=== PATIENT | female | born 1960 | race Caucasian/White ===

== ENCOUNTER 2019-02-26 16:04 | Emergency (ER) | payer MEDICAID ==
[~2019-02-26] VITALS: Ht 170.2 cm; Wt 70.3 kg
[2019-02-26 16:10] VITALS: BP_SYST 159
[2019-02-26] MEDS ORDERED: KETOROLAC TROMETHAMINE 60 MG/2 ML VIAL IM ONE (17:30)
[2019-02-26 17:50] VITALS: BP_SYST 158
== END 2019-02-26 17:50 | disposition home or self-care (01) ==
LOC: SED 16:04
DX: S90.32XA Contusion of left foot, initial encounter (principal); F17.210 Nicotine dependence, cigarettes, uncomplicated; R03.0 Elevated blood-pressure reading, without diagnosis of hypertension; W20.8XXA Other cause of strike by thrown, projected or falling object, initial encounter; Y93.89 Activity, other specified; Y92.89 Other specified places as the place of occurrence of the external cause; Y99.8 Other external cause status
CPT/HCPCS: 73630; 96372; 99283; J1885

== ENCOUNTER 2019-10-07 11:14 | Emergency (ER) | payer MEDICAID ==
[~2019-10-07] VITALS: Ht 170.2 cm; Wt 72.6 kg
[2019-10-07 11:14] VITALS: BP_SYST 157
[2019-10-07] MEDS ORDERED: KETOROLAC TROMETHAMINE 60 MG/2 ML VIAL IM ONE (12:00)
[2019-10-07] MEDS ORDERED: IBUP-1017 PO (12:06)
[2019-10-07 14:00] VITALS: BP_SYST 144
== END 2019-10-07 14:00 | disposition home or self-care (01) ==
LOC: SED 11:14
DX: M19.90 Unspecified osteoarthritis, unspecified site (principal); F17.210 Nicotine dependence, cigarettes, uncomplicated; Z71.6 Tobacco abuse counseling
CPT/HCPCS: 29125; 36415; 71045; 73130; 84550; 96372; 99284; J1885

== ENCOUNTER 2022-12-13 10:51 | Emergency (ER) | payer MEDICAID ==
[~2022-12-13] VITALS: Ht 167.6 cm; Wt 77.1 kg
[~2022-12-13 10:51] MED LIST: IBUP-1017 PO
[2022-12-13 10:57] VITALS: BP_SYST 161
[2022-12-13] MEDS ORDERED: ALBMDI INH (12:20)
[2022-12-13] MEDS ORDERED: PSEU30TA36 PO (12:20)
[2022-12-13 12:45] VITALS: BP_SYST 161
== END 2022-12-13 12:43 | disposition home or self-care (01) ==
LOC: SED 10:51
DX: J40 Bronchitis, not specified as acute or chronic (principal); R05.9 Cough, unspecified; R09.81 Nasal congestion; Z79.899 Other long term (current) drug therapy; Z20.822 Contact with and (suspected) exposure to COVID-19
CPT/HCPCS: 36415; 71045; 99284

== ENCOUNTER 2023-01-29 07:42 | Emergency (ER) | payer MEDICAID ==
[~2023-01-29] VITALS: Ht 167.6 cm; Wt 72.6 kg
[~2023-01-29 07:42] MED LIST changes: +ALBMDI INH; +PSEU30TA36 PO
--- NOTE | 2023-01-29 07:45 | NUR ---
Patient to ER bed 08 to gown for evaluation. Side rails up.
--- NOTE | 2023-01-29 07:48 | NUR ---
PATIENT BIB SELF C/O MOUTH LEFT SIDED MOUTH PAIN 7/10 AND SWOLLEN JAW X 3 DAYS. PATIENT STATES PAIN WORSENED LAST NIGHT. HAS NOT SEEN A DENTIST D/T SEVERE DENTAL ANXIETY. MED HX HTN. BP 182/113. PATIENT HAS NOT TAKEN HTN MEDS SINCE ONSET OF MOUTH PAIN "BECAUSE IT HURTS TOO MUCH".
[2023-01-29 07:51] VITALS: BP_SYST 182
--- NOTE | 2023-01-29 07:54 | NUR ---
Dr Underwood evaluating patient at bedside
[2023-01-29] MEDS ORDERED: AMOXICILLIN/POTASSIUM CLAV 875 MG TABLET PO ONE (08:00)
[2023-01-29] MEDS ORDERED: IBUPROFEN 600 MG TABLET PO ONE (08:00)
[2023-01-29] MEDS ORDERED: amLODIPine BESYLATE 5 MG TABLET PO ONE (08:00)
[2023-01-29] MEDS ORDERED: AUG875 PO (08:04)
[2023-01-29] MEDS ORDERED: IBUP-1971 PO (08:04)
[2023-01-29 08:16] VITALS: BP_SYST 190
--- NOTE | 2023-01-29 08:16 | NUR ---
Patient given written and verbal discharge instructions and verbalizes understanding. ER MD MONTES discussed with patient the results and treatment provided. Patient in stable condition. ID arm band removed. Rx of AUGMENTIN, IBUPROFEN given. Patient educated on pain management and to follow up with PMD. Pain Scale 7/10. Opportunity for questions provided and answered. Medication side effect fact sheet provided.
== END 2023-01-29 08:16 | disposition home or self-care (01) ==
LOC: SED 07:42
DX: K04.7 Periapical abscess without sinus (principal); R05.9 Cough, unspecified; R09.89 Other specified symptoms and signs involving the circulatory and respiratory systems; I10 Essential (primary) hypertension; Z79.899 Other long term (current) drug therapy
CPT/HCPCS: 99284